=== PATIENT | male | born 1985 | race Caucasian/White ===

== ENCOUNTER 2017-02-28 13:53 | Emergency (ER) | payer MEDICAID ==
[~2017-02-28] VITALS: Ht 172.7 cm; Wt 120.2 kg
--- NOTE | 2017-02-28 14:00 | NUR ---
Patient to ER bed 08 to gown for evaluation. Side rails up.
[2017-02-28 14:02] VITALS: BP_SYST 144
--- NOTE | 2017-02-28 14:02 | NUR ---
Pt brought by self, A&Ox4, pt states he stepped on a nail with right foot and would like a tetanus shot, pt denies pain, no active bleeding, no s/s of infection, VSS.
--- NOTE | 2017-02-28 15:03 | NUR ---
ER ARTURO Zavala at bedside for evaluation
[2017-02-28 15:15] VITALS: BP_SYST 128
[2017-02-28] MEDS ORDERED: DIPH-TET-PERTUS Vaccine 0.5 ML VIAL (ADACEL) I.M. ONE (15:15)
[2017-02-28] MEDS ORDERED: BACITRACIN 1 GM OINT TP ONE (15:15)
--- NOTE | 2017-02-28 15:15 | NUR ---
Patient given written and verbal discharge instructions and verbalizes understanding. ER TECHNOLOGY EDUCATION INSTRUCTOR Sally discussed with patient the results and treatment provided. Patient in stable condition. ID arm band removed. Rx of bacitracin given. Patient educated on pain management and to follow up with PMD. Pain Scale 0/10. Opportunity for questions provided and answered.
== END 2017-02-28 15:15 | disposition home or self-care (01) ==
LOC: SED 13:53
DX: Z23 Encounter for immunization (principal); R22.42 Localized swelling, mass and lump, left lower limb; F17.210 Nicotine dependence, cigarettes, uncomplicated
CPT/HCPCS: 90715; 99283

== ENCOUNTER 2017-11-28 15:58 | Emergency (ER) | payer MEDICAID ==
[~2017-11-28] VITALS: Ht 172.7 cm; Wt 117.9 kg
[2017-11-28 16:51] VITALS: BP_SYST 137
[2017-11-28] MEDS ORDERED: HYDROcodone/ACETAMIN 7.5-325 MG TAB PO ONE (18:00)
[2017-11-28 18:55] VITALS: BP_SYST 137
== END 2017-11-28 18:55 | disposition home or self-care (01) ==
LOC: SED 15:58
DX: S82.302A Unspecified fracture of lower end of left tibia, initial encounter for closed fracture (principal); R03.0 Elevated blood-pressure reading, without diagnosis of hypertension; X58.XXXA Exposure to other specified factors, initial encounter; Y93.67 Activity, basketball; Y92.89 Other specified places as the place of occurrence of the external cause; Y99.8 Other external cause status
CPT/HCPCS: 99284